=== PATIENT | female | born 1980 | race Caucasian/White ===

== ENCOUNTER 2019-11-12 16:16 | Emergency (ER) | payer BC, OTHER ==
[2019-11-12] MEDS ORDERED: Acetaminophen/oxyCODONE 325-5 MG Tab PO ONE (16:36)
--- NOTE | 2019-11-12 17:29 | CR ---
Left ankle: 4 radiographs of the left ankle were obtained. Nondisplaced lateral malleolus fracture is noted. Soft tissue swelling is noted. Ankle mortise is symmetric. No additional fracture or other abnormality is appreciated. Impression: 1. Nondisplaced lateral malleolus fracture. 2. Soft tissue swelling. Diagnostic code #3 This report was dictated in MDT
--- NOTE | 2019-11-12 18:55 | EDM.PDOC ---
ED HPI GENERAL MEDICAL PROBLEM - General Chief Complaint: Lower Extremity Injury/Pain Stated Complaint: fell down left ankle pain Time Seen by Provider: 11/12/19 16:24 Source of Information: Reports: Patient History Limitations: Reports: No Limitations - History of Present Illness INITIAL COMMENTS - FREE TEXT/NARRATIVE: 39-year-old female with a past medical history of anxiety presenting with a left ankle injury. Approximately 7 or 8 hours ago, the patient inverted her left ankle while walking over a rock. Now unable to bear weight due to worsening pain. No self treatment prior to arrival. No other complaints. left ankle Pain Score (Numeric/FACES): 10 - Related Data Allergies Allergy/AdvReac Type Severity Reaction Status Date / Time amoxicillin Allergy Other Verified 11/12/19 16:36 Home Meds: Home Meds Acetaminophen [Acetaminophen Extra Strength] 500 - 1,000 mg PO Q6H PRN #30 tablet 11/12/19 [Rx] Acetaminophen [Acetaminophen Extra Strength] 500 - 1,000 mg PO Q6H PRN #30 tablet 11/12/19 [Rx] Ibuprofen 400 mg PO Q6H PRN #30 tablet 11/12/19 [Rx] LORazepam [Lorazepam] 0.5 mg PO TID PRN 11/12/19 [History] PARoxetine HCL [Paroxetine HCl] 20 mg PO DAILY 11/12/19 [History] oxyCODONE 5 - 10 mg PO Q6H PRN #20 tab 11/12/19 [Rx] oxyCODONE 5 - 10 mg PO Q6H PRN #20 tab 11/12/19 [Rx] Past Medical History Genitourinary History: Reports: Other (See Below) Other Genitourinary History: History of acute episode of kidney dysfunction (due to too many red bull drinks in short time). 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 History: Unknown cause of several syncopal episodes during Psychiatric History: Reports: Depression Social & Family History - Family History Family Medical History: Noncontributory - Tobacco Use Smoking Status *Q: Never Smoker - Caffeine Use Caffeine Use: Reports: Soda - Recreational Drug Use Recreational Drug Use: No Review of Systems - Review of Systems Review Of Systems: See Below Constitutional: Reports: No Symptoms Eyes: Reports: No Symptoms Ears: Reports: No Symptoms Nose: Reports: No Symptoms Mouth/Throat: Reports: No Symptoms Respiratory: Denies: Shortness of Breath Cardiovascular: Denies: Chest Pain GI/Abdominal: Reports: No Symptoms Genitourinary: Reports: No Symptoms Musculoskeletal: Reports: Foot Pain, Joint Pain, Joint Swelling. Denies: Back Pain, Hand Pain, Leg Pain Skin: Reports: No Symptoms Neurological: Denies: Numbness, Paresthesia ED EXAM, GENERAL - Physical Exam Exam: See Below Free Text/Narrative:: Vital signs reviewed. Nursing notes reviewed. Constitutional: Awake, alert, non-distressed. Head: Normocephalic, atraumatic. Eyes: EOMI, conjunctiva normal, no discharge, no scleral icterus. Ears, Nose, Throat: External ears and nose normal, moist oral mucosa. Cardiovascular: 2+ left dorsalis pedis pulse, capillary refill less than 2 seconds in the left foot Pulmonary: normal work of breathing, no accessory muscle use. Abdomen/GI: Soft, nontender, nondistended, no guarding or rigidity, no masses. Musculoskeletal: Gross edema to the left lateral malleolus, tenderness to palpation of the same area. Integumentary: Appropriate color for ethnicity, warm, dry, no pallor or jaundice, no rash. Neurologic: Alert, answering questions appropriately, normal speech, no facial droop, moving all extremities well. Sensation intact to light touch in left foot Psychiatric: Appropriate mood and affect, normal thought process. ED TRAUMA EXTREMITY PROCEDURES - Splinting Left Lower Extremity Pre-Procedure NV Status: Normal Post-Procedure NV Status: Normal Splint Material: Other (Ortho-Glass) Splint Design: Posterior Applied & Form Fitted By: Nurse Provider Post-Splint Application NV Check: NV Status Normal, Good Position Complications: Yes Course - Vital Signs Text/Narrative:: 39-year-old female presenting with a left ankle injury. Neurovascularly intact. No evidence of an open fracture. Given p.o. Bonita for pain. X-rays obtained of the left ankle, showing a nondisplaced lateral malleolus fracture. Placed in a posterior short-leg Ortho-Glass splint. Refer to the procedure note for more information about this. Stable to discharge home. Given crutches and crutch instructions. Prescription sent for extra strength Tylenol, ibuprofen, short course of oxycodone. Referral to orthopedic surgery clinic, follow-up in 1 to 2 weeks. Splint care precautions and ED return precautions were provided. All questions answered prior to departure. Last Recorded V/S: Last Vital Signs Temp 36.6 C 11/12/19 19:02 Pulse 78 11/12/19 19:02 Resp 16 11/12/19 19:02 BP 126/82 11/12/19 19:02 Pulse Ox 96 11/12/19 19:02 - Orders/Labs/Meds Meds: Medications Discontinued Medications Generic Name Dose Route Start Last Admin Trade Name Freq PRN Reason Stop Dose Admin Oxycodone/Acetaminophen 2 tab 11/12/19 16:36 11/12/19 17:07 Percocet 325-5 Mg PO 11/12/19 16:37 2 tab ONETIME ONE Administration Departure - Departure Time of Disposition: 18:50 Disposition: Home, Self-Care 01 Condition: Good Clinical Impression: Closed fracture of left distal fibula Qualifiers: Encounter type: initial encounter Fracture morphology: unspecified fracture morphology Qualified Code(s): S82.832A - Other fracture of upper and lower end of left fibula, initial encounter for closed fracture - Discharge Information *PRESCRIPTION DRUG MONITORING PROGRAM REVIEWED*: Yes *COPY OF PRESCRIPTION DRUG MONITORING REPORT IN PATIENT ZEN: No Prescriptions: Acetaminophen [Acetaminophen Extra Strength] 500 - 1,000 mg PO Q6H PRN #30 tablet PRN Reason: Pain (Mild 1-3) Acetaminophen [Acetaminophen Extra Strength] 500 - 1,000 mg PO Q6H PRN #30 tablet PRN Reason: Pain (Mild 1-3) Ibuprofen 400 mg PO Q6H PRN #30 tablet PRN Reason: Pain (Mild 1-3) oxyCODONE 5 - 10 mg PO Q6H PRN #20 tab PRN Reason: Pain (Severe 7-10) oxyCODONE 5 - 10 mg PO Q6H PRN #20 tab PRN Reason: Pain (Severe 7-10) Instructions: Crutch Use, Adult, [id number], Nondisplaced Fibular Ankle Fracture Treated With Immobilization, Adult, Cast or Splint Care, Adult, [id number] Referrals: [facility] - Orthopaedics [Provider Group] - 1 Week (For follow-up of fracture.) Forms: ED Department Discharge Additional Instructions: Thank you for choosing the [facility] emergency department in [place] for your medical needs today. It was a pleasure caring for you. You were seen in the emergency department for an ankle injury. You were found to have a distal fibular fracture and placed in a splint. You were prescribed pain medications. You need to follow-up with an orthopedic surgery clinic in 1 to 2 weeks for follow-up fracture care. I recommend [id number] extra strength acetaminophen (1000 mg every 6 hours) and ibuprofen (400 mg every 6 hours) to help treat your pain. Please return the emergency department immediately if your symptoms worsen or if you feel worse. The following information is given to patients seen in the emergency department who are being discharged. This information is to outline your options for follow-up care. We provide all patients seen in our emergency department with a follow-up referral. The need for follow-up, as well as the timing and circumstances, are variable depending upon the specifics of your emergency department visit. If you don't have a primary care physician on staff, we will provide you with a referral. We always advise you to contact your personal physician following an emergency department visit to inform them of the circumstance of the visit and for follow-up with them and/or the need for any referrals to a consulting specialist. The emergency department will also refer you to a specialist when appropriate. This referral assures that you have the opportunity for follow-up care with a specialist. All of these measure are taken in an effort to provide you with optimal care, which includes your follow-up. Under all circumstances we always encourage you to contact your private physician who remains a resource for coordinating your care. When calling for follow-up care, please make the office aware that this follow-up is from your recent emergency room visit. If for any reason you are refused follow-up, please contact the [facility] Emergency Department at and asked to speak to the emergency department charge nurse. If you do not have a primary care physician that is caring for you, you can contact these clinics below to set up an appointment to establish care: Silvana Blair [facility] - Primary Care [address] [place] [address], [place] [address] [facility] [address] [place] [id number] Sepsis Event Note (ED) - Evaluation Sepsis Screening Result: No Definite Risk
== END 2019-11-12 19:02 | disposition home or self-care (01) ==
LOC: MW.ED 16:16
DX: S82.832A Other fracture of upper and lower end of left fibula, initial encounter for closed fracture (principal); F32.9 Major depressive disorder, single episode, unspecified; Z88.1 Allergy status to other antibiotic agents; Z79.899 Other long term (current) drug therapy; X50.1XXA Overexertion from prolonged static or awkward postures, initial encounter; Y93.01 Activity, walking, marching and hiking
CPT/HCPCS: 29515; 73610; 99283; A9270